=== PATIENT | male | born 1940 | race Caucasian/White ===

== ENCOUNTER → 2016-11-11 | Day surgery (SDC) | payer MEDICARE, BC ==
--- NOTE | 2016-11-05 13:34 | MH ---
cc: NILTON JACKSON DATE OF ADMISSION 11/11/2016 ADMISSION DIAGNOSIS Cataract left eye. HISTORY OF PRESENT ILLNESS This 76-year-old white male is coming through [facility] for the purpose of a lens extraction of the left eye with intraocular lens implant under local anesthesia. He has noted decreasing visual acuity interfering with his daily activities and elected to have above procedure. His best corrected visual acuity in room light is 20/40 in the right eye and 20/50 in the left. PAST MEDICAL HISTORY The patient has a history of: 1. Hypertension 2. Cholesterol problems PAST SURGICAL HISTORY Includes: 1. Tonsillectomy 2. Pterygiectomy in the left eye. DAILY MEDICATIONS Include: 1. Simvastatin 2. Baby aspirin 3. Amlodipine 4. Multivitamins ALLERGIES He has no known allergies. SOCIAL HISTORY Does not smoke and has two drinks of alcoholic beverage a day in the evening. FAMILY HISTORY His family history is unknown as he is adopted. REVIEW OF SYSTEMS HEAD: Patient denies severe headaches, dizziness or recent head injury. EARS: Patient denies hearing loss, ear pain, discharge. The patient has a mild amount of ringing in the ears, tinnitus, for the last year. NOSE: Patient gets occasional nasal obstruction due to sinusitis, but nasal discharge, obstruction or frequent colds. MOUTH AND THROAT: Patient denies soreness of the mouth or tongue, bleeding gums, trouble swallowing, changes in voice or sore throat. NECK: Patient denies neck pain or swelling, limitation of neck movement or neck injury. CARDIOPULMONARY SYSTEM: Denies shortness of breath, orthopnea, chronic cough, sputum production, hemoptysis, chest pain, wheezing, or light-headedness. GI SYSTEM: Patient denies poor appetite, nausea, vomiting, abdominal pain, ulcers, hemorrhoids or change in bowel habits. SYSTEM: The patient denies urinary frequency, dysuria, change in urine color. NERVOUS SYSTEM: Patient denies convulsions, vertigo, stroke, numbness or weakness. PHYSICAL EXAMINATION Blood pressure is 136/78, pulse 76, respirations 16. HEAD: Normocephalic, atraumatic. NOSE: Without rhinorrhea. THROAT: Clear. NECK: Supple. CHEST: Clear. HEART: Regular rhythm. ABDOMEN: Without tenderness. EXTREMITIES: Without edema. NEUROLOGIC: Within normal limits. MENTAL STATUS: Within normal limits. EYE EXAMINATION The patient's best corrected visual acuity in room light is 20/40 in the right eye and 20/50 in the left. Visual conner are full to confrontation testing. Extraocular muscle exam reveals full versions with orthophoria at distance and near. Pupils are 3 mm equal, round, reactive to light without afferent defect. Anterior segment examination reveals a minimal pterygium in the right eye and status post Pterygiectomy in the left. There are nuclear sclerotic cataracts present bilaterally. Intraocular pressure is 17 in the right eye and 15 in the left by applanation tonometry. Dilated fundus exam reveals sharp disk with cup-to-disk ratio 0.4 in the right eye and 0.3 in the left. The macula is clear. Posterior vitreous detachment is present bilaterally. IMPRESSION 1. Bilateral cataracts 2. Posterior vitreous detachment both eyes 3. Status post Pterygiectomy left eye. PLAN The plan is lens extraction of the left eye with intraocular lens implant under local anesthesia through [facility]. The patient has been cleared medically. He has been counseled as to the risks, benefits and alternatives and elected to proceed. I feel that I feel that cataract surgery will improve the quality of life and activities of daily living in this patient. MD ZACHERY Spence/HAMILTON /1:17 PM /1:26 PM
[~2016-11-11] VITALS: Ht 180.3 cm; Wt 76.5 kg
[~2016-11-11] MED LIST: ACETYLCHOLINE CHL OPHT SOLN 1:100 2 ML VIAL ONE; AMLO2.5T PO; ASPI81CH CHEW; CHLORHEXIDINE GLUCONATE 2 % 1 PACK (2 CLOTHS) TOPICAL PRN; EPINEPHrine HCL (1:1000) 1 MG/ML VIAL ONE; HYALURONIDASE/LIDOCAINE/BUPIVACAINE 4.5 ML SYR LEFT EYE ONE; HYALURONIDASE/LIDOCAINE/BUPIVACAINE 6 ML SYR LEFT EYE ONE; INSULIN HUMAN REGULAR 1,000 UNITS/10 ML VIAL SQ PRN; LACTATED RINGER'S 1000 ML IV PRN; METOPROLOL TARTRATE 25 MG TAB PO PRN; MULTTAB67 PO; PILOCARPINE HCL 2% OPHT SOLN 15 ML BTL ONE; POVIDONE IODINE 5% (ANTISEPSIS KIT) 4 APPLICATIONS EACH NARE PRN; PROPARACAINE HCL 0.5% OPHT SOLN 15 ML BTL LEFT EYE ONE; PROPOFOL 200 MG/20 ML AMP ONE; SODIUM CHLORID 0.9% 500 ML IV PRN; TETRACAINE 0.5% OPTH SOLN 4 ML BTL ONE; VISCOAT OPHT IRRIG SOLN 0.75 ML SYRINGE ONE; ZOCO10TA PO
[2016-11-11 09:33] VITALS: PULSE 72
[2016-11-11] MEDS: PHENYLEPHRINE HCL 2.5% OPTH SOLN 2 ML BTL LEFT EYE SCH ×4 (09:35→09:44)
[2016-11-11] MEDS: DICLOFENAC SOD 0.1% OPHT SOLN 2.5 ML BTL LEFT EYE SCH ×4 (09:35→09:44)
[2016-11-11] MEDS: TROPICAMIDE 1% OPHT SOLN 15 ML BTL LEFT EYE SCH ×4 (09:35→09:44)
[2016-11-11] MEDS: GATIFLOXACIN 0.5% OPHT SOLN 2.5 ML BTL LEFT EYE SCH ×4 (09:35→09:44)
[2016-11-11] MEDS: CYCLOPENTOLATE HCL 1% OPHT SOLN 2 ML BTL LEFT EYE SCH ×4 (09:35→09:44)
[2016-11-11 10:17] VITALS: PULSE 71
[2016-11-11 12:40] VITALS: TEMP 98
--- NOTE | 2016-11-11 12:59 | MP ---
cc: NILTON LAI DATE OF SURGERY November 11, 2016 PREOPERATIVE DIAGNOSIS: Cataract left eye. POSTOPERATIVE DIAGNOSIS: Cataract left eye. OPERATION: Extracapsular cataract extraction with posterior chamber intraocular lens implant by phacoemulsification, left eye. SURGEON: Nilton Lai M.D. ANESTHESIA: Local. COMPLICATIONS: None. INDICATIONS: See history and physical previously dictated. OPERATIVE PROCEDURE: The patient had adequate retrobulbar and eyelid blocks administered in the holding area and was brought to the operating room. The left eye was prepped and draped in the usual sterile ophthalmic manner. A lid speculum was inserted in the left eye. A 4-0 silk bridle suture was placed through the conjunctiva near the superior rectus muscle and it was tagged to the drape. A fornix-based conjunctival flap was prepared spanning approximately 5 mm in width. Hemostasis was obtained with wet-field cautery. A 3.5 mm groove was made at the 2 o'clock position. The side port incision was then made at the 4 o'clock position. Viscoelastic was injected into the anterior chamber. The anterior chamber was entered with a 2.75 mm keratome through the scleral pocket incision. A 360 degree cotinuous curvilinear capsulorrhexis was then performed. Hydrodissection was utilized to divide the nucleus into inner and outer components and to separate the cortex from the capsule. Phacoemulsification was then utilized to remove the nucleus. The outer nuclear layer was removed with irrigation and aspiration and short bursts of ultrasound as necessary. The cortex was removed with the irrigation/aspiration handpiece. The posterior capsule was polished with the capsule polisher. Viscoelastic was injected into the capsular bag. The intraocular lens was inspected and found to be in good condition. The lens utilized was a Kayden, model number SA60AT with a power of +22 diopters. The lens was inserted into the capsular bag. The viscoelastic in the anterior chamber was then removed with the irrigation-aspiration handpiece. Viscoelastic was also removed from beneath the intraocular lens. The anterior chamber was filled with Miochol-E through the stab incision and pressurized. The wound was checked for leaks at this pressure and normalized pressure and there were none. The 4-0 bridle suture was removed. The conjunctival flap was brought down over the wound and secured with cautery. Pilocarpine 2% eye drops were instilled topically. The lid speculum was removed. TobraDex ophthalmic ointment was applied. The eye was double patched and shielded. The patient tolerated the procedure well and left the Operating Room in satisfactory condition. MD ZACHERY Spence/JESIKA /12:41 PM /12:52 PM
[2016-11-11 13:05] VITALS: BP 142/75; PULSE 71; RESP 14; O2SAT 99
== END | disposition home or self-care (01) ==
LOC: PHSDC 08:54
PROVIDERS: ATTEND Ophthalmology
DX: H25.13 Age-related nuclear cataract, bilateral (principal); H43.813 Vitreous degeneration, bilateral; I10 Essential (primary) hypertension; Z79.899 Other long term (current) drug therapy; Z79.82 Long term (current) use of aspirin
CPT/HCPCS: 00142; 66984; J0171; J7040; V2632